=== PATIENT | male | born 1970 | race Caucasian/White ===

== ENCOUNTER 2024-05-02 10:21 | Outpatient (CLI) | payer OTHER, SELFPAY ==
[2024-05-02 11:25] LABS: Alanine Aminotransferase 56 U/L (6-50); Albumin Level 4.6 g/dL (3.5-5.1); Alkaline Phosphatase 93 U/L (38-126); Anion Gap 9 mmol/L (4-12); Aspartate Amino Transferase 40 U/L (17-59); Blood Urea Nitrogen 14 mg/dL (9-20); Calcium 9.4 mg/dL (8.4-10.2); Carbon Dioxide 30 mmol/L (22-30); Chloride 99 mmol/L (98-107); Cholesterol 165 mg/dL (0-200); Estimated Glomerular Filt Rate > 60; Glucose 107 mg/dL (65-110); HDL Direct 38 mg/dL; Sodium 138 mmol/L (137-145); Triglycerides 245 mg/dL (<150)
[2024-05-02 11:35] LABS: LDL Cholesterol Direct 83 mg/dL
== END 2024-05-02 10:22 | disposition home or self-care (01) ==
PROVIDERS: PCP Family Medicine; Referring Provider Physician Assistant Medical; Visit Provider Internal Medicine Cardiovascular Disease
DX: E78.2 Mixed hyperlipidemia (principal); R03.0 Elevated blood-pressure reading, without diagnosis of hypertension; I47.10 Supraventricular tachycardia, unspecified; R55 Syncope and collapse
CPT/HCPCS: 36415; 80053; 80061; 84443

== ENCOUNTER 2024-05-08 05:31 | Emergency (ER) | payer OTHER, SELFPAY ==
--- NOTE | ~2024-05-08 | XR_ITS ---
Clinical Indication: Cough PA and lateral views of the chest: Comparison: None Findings: The lungs are clear, without evidence of focal consolidation or pleural effusion. Cardiome diastinal silhouette is within normal limits. Bones and soft tissues are unremarkable. Impression: Normal chest. Reviewed, dictated and finalized at location . Impression: Normal chest.
[2024-05-08 06:31] LABS: Influenza A QL RT-PCR Negative (Negative); Influenza B QL RT-PCR Negative (Negative); RSV RNA, RT-PCR Negative (Negative); SARS-CoV-2 RNA PCR Negative (Negative)
--- NOTE | 2024-05-08 06:34 | ED.URI ---
HPI - URI/Sore Throat General Chief Complaint: Upper Respiratory Infection Stated Complaint: congestion that comes and goes, pressure left ear Time Seen by Provider: 05/08/24 05:48 History of Present Illness HPI Narrative: 53-year-old otherwise healthy male presenting for 3 weeks of cough, congestion, head pressure. He thinks he has some kind of bronchitis. He was a previous smoker but quit 20 years ago. No recent sick contacts. No chest pain or difficulty breathing. No nauseousness, vomiting, abdominal pain, back pain, fever, chills. His main complaint is that he has been coughing nonstop. Has tried some qcet-hpg-hxvejji decongestant without any relief of his symptoms. No significant pertinent past medical history. Was otherwise in good health. Related Data Allergies Allergy/AdvReac Type Severity Reaction Status Date / Time penicillin V Allergy Unknown Rash Verified 04/22/24 15:12 Review of Systems Review of Systems: As reviewed above in HPI [facility] Past Medical History Medical History Hyperlipidemia Surgical History Surgical History History of kidney surgery Family History Family History Father Family history of heart disease in male family member before age 55 Grandparent Cancer Social History Social History Smoking status: Never smoker Second hand tobacco smoke exposure: No Smoking end date: 08/28/08 Alcohol intake: current Alcohol use details: 1-4/week Substance use: never Substance use type: does not use Do You Feel Safe in your Home?: Yes Lack of Transportation: No Lack of Food: Never True Current Housing: I Have Housing Concerned About Future Housing: No Difficulty Paying Gas/Electric Bills: No Difficulty Paying for Meds: No Currently Unemployed: No Living arrangements: with family Occupation/Education: occupation Gender identity (if verbalized by the patient): Male Sexual Orientation (if Verbalized by the Patient): Straight or Heterosexual Spiritual care concerns: No Agree to blood products: No Exam Narrative: GENERAL: Well appearing, not in any acute distress but frequently coughing throughout the examination. Nonproductive and cough. HEAD: [Normocephalic, atraumatic.] EYES: [PERRLA and EOMI.] ENT: Nares clear, no rhinorrhea or epistaxis. Mucous membranes moist. NECK: Supple. CHEST: Some coarse breath sounds centrally but no respiratory distress. Frequently coughing throughout the examination. Good air entry and bilateral movement of air. HEART: [Regular rate and rhythm]. No murmur heard. [Normal peripheral pulses.] ABDOMEN: [Soft, nondistended], [nontender], [No rigidity or guarding] EXTREMITIES: Normal range of motion. [No edema.] SKIN: Warm, dry, no rash. NEURO: [No focal deficits]. Alert and oriented [x3.] PSYCH: [Normal mood and affect.] Course Vital Signs Vital signs: Vital Signs Oxygen Delivery Room Air 05/08/24 05:55 Oxygen Delivery Room Air 05/08/24 05:55 MDM - URI/Sore Throat MDM Narrative Medical decision making narrative: This is a 53-year-old male presenting with 3 weeks of upper respiratory infection symptoms including a nonproductive cough, congestion, head pressure. Was previously his normal state of health. Has normal reassuring triage vital signs without any acute concerns. Not hypoxic on room air. Examination reveals some coarse breath sounds more centrally but no adventitious breath sounds in the bases. Differential includes upper respiratory infection, lower respiratory infection, pneumonia, bronchitis, COVID. He was given symptomatic treatment with Tylenol with codeine as well as pseudoephedrine 1st congestion. A chest x-ray and COVID swab w
[2024-05-08 06:47] VITALS: BP 143/102; PULSE 88; RESP 18; TEMP 36.4; O2SAT 99
[2024-05-08] MEDS: PSEUDOEPHEDRINE HCL 30 MG TABLET 60 MG PO (07:04)
[2024-05-08] MEDS: ACETAMINOPHEN/CODEINE ELIXIR (*CRX) 120-12 MG/5 ML UDC PO (07:04)
[2024-05-08] MEDS: AZITHROMYCIN 250 MG TABLET 500 MG PO (07:09)
[2024-05-08 07:13] VITALS: BP 143/102; PULSE 88; RESP 18; TEMP 36.4; O2SAT 99
== END 2024-05-08 07:17 | disposition home or self-care (01) ==
PROVIDERS: Emergency Provider Student in an Organized Health Care Education/Training Program; PCP Family Medicine
DX: J40 Bronchitis, not specified as acute or chronic (principal); J06.9 Acute upper respiratory infection, unspecified; Z87.891 Personal history of nicotine dependence; E78.5 Hyperlipidemia, unspecified; Z20.822 Contact with and (suspected) exposure to COVID-19
CPT/HCPCS: 71046; 87637; 99283; A9270

== ENCOUNTER 2024-07-07 18:22 | Emergency (ER) | payer OTHER, SELFPAY ==
--- NOTE | ~2024-07-07 | XR_ITS ---
EXAM: XR ankle RT min 3V, XR foot RT min 3V DATE: 07/07/2024 21:00 HISTORY: pain, swelling, injury . COMPARISON: None available. FINDINGS: Normal mineralization. Small ossific fragment between the lateral talar process and the ti p of lateral malleolus. Fractures of the necks of the second through fourth metatarsals with mild pos terolateral angulation. No lytic lesion. Mild degenerative change at the ankle joint and first MTP bert int. Mild Achilles and plantar enthesopathy. Mild hallux valgus. Large enostosis in the right first p roximal phalanx. No erosion or periosteal change. Forefoot soft tissue swelling. IMPRESSION: Fractures of the necks of the second through fourth metatarsals, with mild posterolateral angulation. Small lateral ossific fragment may represent a fragment from a small lateral malleolar avulsion or la teral talar process fracture. Reviewed, dictated and finalized at location K. PHONE STATION INSTALLER IMPRESSION: Fractures of the necks of the second through fourth metatarsals, with mild post erolateral angulation. Small lateral ossific fragment may represent a fragment from a small lateral ma lleolar avulsion or lateral talar process fracture.
--- NOTE | ~2024-07-07 | XR_ITS ---
EXAMINATION: XR chest 2V Exam Date/Time: 07/07/2024 21:25 WELDING PRODUCTION SUPERVISOR HISTORY: syncope Comparison: 05/08/2024. RESULT: Lines, tubes, and devices: None. Lungs and pleura: Clear. Cardiomediastinal silhouette: Stable. Other: No acute osseous or upper abdominal finding. IMPRESSION: No acute cardiopulmonary process. Reviewed, dictated and finalized at location K. ING PRODUCTION SUPERVISOR
--- NOTE | ~2024-07-07 | XR_ITS ---
EXAM: XR hip RT 2V w AP pelvis DATE: 07/07/2024 21:33 HISTORY: hip pain, injury . COMPARISON: None available. FINDINGS: Normal mineralization. No fracture or dislocation. No lytic or blastic lesion. Joint space s are maintained. No erosion or periosteal change. Soft tissues within normal limits. IMPRESSION: No acute osseous finding in the pelvis or right hip. Reviewed, dictated and finalized at location K. S CENTER MANAGER
[2024-07-07 18:52] VITALS: BP 152/101; PULSE 110; RESP 18; TEMP 36.9; O2SAT 97
--- NOTE | 2024-07-07 18:53 | ECG_ITS ---
Test Date: 2024-07-07 19:07:13 Measurements Intervals [place] Rate: 112 P: 75 OR: 147 QRS: -32 QRSD: 98 T: 16 QT: 332 QTc: 455 Interpretive Statements SINUS TACHYCARDIA LEFT AXIS DEVIATION CONSIDER ANTERIOR INFARCT, AGE INDETERMINATE BASELINE ARTIFACT- I, III, AVR, AVL, AVF, V1-V6 ABNORMAL ECG No previous ECG available for comparison Electronically Signed On 07-08-2024 07:03:01 SUPERVISOR ROUGH END by Flavio Younger D.O.
[2024-07-07 19:09] VITALS: PULSE 112
[2024-07-07 20:44] VITALS: BP 110/76; PULSE 86; RESP 18; TEMP 36.4; O2SAT 97
--- NOTE | 2024-07-07 20:49 | PC.NURSE ---
pt was brought back to the room and c/o feeling dizzy. got vitals and pt BP was 64/41 and pt was pale and passed out. pt was sternal rubbed and put into the bed. this RN put an IV in, brooks blood, got an ekg, pt placed in trendelenberg, and notified a MD that instructed to start pt on fluids. pt BP was 82/53 at 2033. at 2042 pt bp was 96/78 with 300 mL of NS infused. pt bp at 2044 was 110/76 with 450 mL of NS infused. pt says hes feeling back to his normal self at this time
[2024-07-07] MEDS: SODIUM CHLORIDE 0.9% IV 1,000 ML 999 ML IV CONT (20:53)
--- NOTE | 2024-07-07 20:53 | ECG_ITS ---
Test Date: 2024-07-07 20:37:44 Measurements Intervals [place] Rate: 90 P: 44 DC: 157 QRS: -17 QRSD: 97 T: 36 QT: 343 QTc: 420 Interpretive Statements SINUS RHYTHM MINIMAL Q WAVES- HIGH LATERAL LEADS BASELINE WANDER- V1 BORDERLINE ECG Compared to ECG 07/07/2024 19:07:13 HEART RATE HAS DECREASED Electronically Signed On 07-08-2024 06:58:02 RAILROAD HAND by Flavio Younger D.O.
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
[2024-07-07 21:13] LABS: Basophils Absolute Auto 0.1 K/mm3 (0.0-0.1); Basophils Percent Auto 0.4 % (0.2-1.2); Eosinophils Absolute Auto 0.5 K/mm3 (0-0.3); Hematocrit 41.3 % (42.0-52.0); Immature Granulocyte Absolute 0.05 K/mm3 (0.00-0.031); Immature Granulocyte Percent A 0.3 % (0-0.5); Lymphocytes Absolute Auto 3.42 K/mm3 (0.9-3.2); Lymphocytes Percent Auto 22.8 % (18.3-44.2); Mean Corpuscular HGB Conc 36.3 g/dl (32-36); Mean Corpuscular Hemoglobin 32.1 pg (26-34); Mean Corpuscular Volume 88.2 fl (80-100); Monocytes Percent Auto 6.9 % (2.6-8.5); Neutrophils Percent Auto 66.6 % (45.5-73.1); Platelet Count Result 321 k/mm3 (150-375); Red Blood Count 4.68 M/mm3 (4.6-6.20); Red Cell Distribution Width 12.9 % (11.5-14.5)
[2024-07-07 21:23] LABS: Anion Gap 8 mmol/L (4-12); Blood Urea Nitrogen 14 mg/dL (9-20); Calcium 9.4 mg/dL (8.4-10.2); Carbon Dioxide 27 mmol/L (22-30); Chloride 103 mmol/L (98-107); Estimated CRCL calculation 82 ml/min; Estimated Glomerular Filt Rate > 60; Glucose 104 mg/dL (65-110); Potassium 3.4 mmol/L (3.4-5.0); Sodium 138 mmol/L (137-145)
[2024-07-07 21:28] VITALS: BP 121/79; PULSE 84; RESP 16; O2SAT 99
[2024-07-07] MEDS: HYDROcodone/acetaminophen (*CRX) 5-325 MG TABLET 1 TAB PO (21:50)
[2024-07-07 21:59] VITALS: BP 133/86; PULSE 100; RESP 15; O2SAT 97
[2024-07-07 22:51] LABS: Troponin I < 0.012 ng/mL (0.000-0.034)
[2024-07-07 23:08] VITALS: BP 135/97; PULSE 98; RESP 16; TEMP 36.7; O2SAT 98
== END 2024-07-07 23:29 | disposition home or self-care (01) ==
PROVIDERS: Emergency Provider Physician Assistant; PCP Family Medicine
DX: S92.321A Displaced fracture of second metatarsal bone, right foot, initial encounter for closed fracture (principal); S92.331A Displaced fracture of third metatarsal bone, right foot, initial encounter for closed fracture; S92.341A Displaced fracture of fourth metatarsal bone, right foot, initial encounter for closed fracture; R55 Syncope and collapse; E78.5 Hyperlipidemia, unspecified; Z87.891 Personal history of nicotine dependence; R00.0 Tachycardia, unspecified; R94.31 Abnormal electrocardiogram [ECG] [EKG]; V86.56XA Driver of dirt bike or motor/cross bike injured in nontraffic accident, initial encounter
CPT/HCPCS: 29515; 36415; 71046; 73502; 73610; 73630; 80048; 84484; 85025; 93005; 96360; 99284; A9270; J7030

== ENCOUNTER 2024-10-25 15:37 | Outpatient (CLI) | payer OTHER, SELFPAY | END 2024-10-25 15:38 | disposition home or self-care (01) | PROVIDERS: PCP Family Medicine; Visit Provider Urology | DX: C64.9 Malignant neoplasm of unspecified kidney, except renal pelvis (principal); Z90.5 Acquired absence of kidney | CPT/HCPCS: 74183; A9577 ==

== ENCOUNTER 2025-01-10 00:09 | Day surgery (SDC) | payer OTHER, SELFPAY ==
[2025-01-01 11:40] VITALS: BMI 28.5
--- OUTSIDE RECORDS SUMMARY | 2025-01-10 00:12 | XMS_ITS | Clinical Summary ---
Author Organization [facility] Care Team Providers Care Logistics Supply Officer Name Role Phone Unavailable Primary Care Provider Unavailabl e Social History Tobacco Use Types Packs/Day Years Used Date Smoking Tobacco: Never Assessed Sex and Gender Information Value Date Recorded Sex Assigned at Not on file Legal Sex Male 11:12 AM CDT Gender Identity Not on file Sexual Orientation Not on file Plan of Treatment Health Maintenance Due Date Last Done Comments Hepatitis C Virus (HCV) Screening 1972 Hepatitis B Immunization (1 of 3 - 19+ 3-dose series) 11/19/1991 Colonoscopy 2017 Colorectal Cancer Screening 2017 Cologuard 2022 Immunochemical Fecal Occult Blood 2022 Pneumococcal Immunization (5 0+ years) (1 of 1 - PCV) 2022 Zoster Immunization (1 of 2) 2022 Influenza Immunization (#1) 2024 SARS-COV-2 Immunization ( season) 2024 07/16/2021, 11/13/2020, 10/23/2020 Respiratory Syncytial Virus (RSV) Immunization (Adult) (1 - 1-dose 75+ series) 11/19/2047 DTaP/Tdap/Td Immunization Discontinued 06/30/2017 TdaP Immunization Completed 06/30/2017 Meningococcal Immunization (ACWY) Aged Out No longer eligible based on patient's age to complete this topic Pneumococcal Immunization Combined Aged Out No longer eligible based on patient's age to complete this topic Rotavirus Immunization Aged Out No lo nger eligible based on patient's age to complete this topic
--- OUTSIDE RECORDS SUMMARY | 2025-01-10 00:12 | XMS_ITS | Encounter Summary ---
Author Organization [facility] Address [address] [place] [address] Phone Care Team Providers Care Ventilator Specialist Name Role Phone Porter Allen MD Unavailable [phone] Marla Funes MD Primary Care Provider [phone] Encounter Details Date Type Department Care Team (Late st Contact Info) Description 11/27/2024 Results Follow-Up [facility] Cardiology [address] [place] [address] [place] [address] Stephanie Snider, WILLIAMS [address] [place] [address] Social History Tobacco Use Types Packs/Day Years Used Date Smoking Tobacco: Former Cigarettes 1 16 09 989 - 2008 Smokeless Tobacco: Never Social Connection and Isolat ion Panel [NHANES] Answer Date Recorded In a typical week, how many times do you talk on the phone with family, friends, or neighbors? More than three times a week 06/21/2023 How often do you get togethe r with friends or relatives? More than three times a week 06/21/2023 How often do you attend chur ch or sabianist services? Never 06/21/2023 Do you belong to any clubs o r organizations such as sabianist groups, unions, fraternal or athletic groups, or school groups? No 06/21/2023 How often do you attend meet ings of the clubs or organizations you belong to? Never 06/21/2023 Are you , , di vorced, , never , or living with a partner? 06/21/2023 AUDIT-C Answer Date Recorded Q1: How often do you have a drink containing alc ohol? 2-4 times a month 11/01/2024 Q2: How many drinks containi ng alcohol do you have on a typical day when you are drinking? 3 or 4 11/01/2024 Q3: How often do you have si x or more drinks on one occasion? Never 11/01/2024 Overall Financial Resource Strain (CARDIA) Answe r Date Recorded How hard is it for you to pa y for the very basics like food, housing, medical care, and heating? Not hard at all 06/21/2023 Hunger Vital Sign Answer Date Recorded Within the past 12 months, y ou worried that your food would run out before you got the money to buy more. Never true 06/21/20 23 Within the past 12 months, t he food you bought just didn't last and you didn't have money to get more. Never true 06/21/2023 PRAPARE - Transportation Answer Date Re corded In the past 12 months, has l ack of transportation kept you from medical appointments or from getting medications? No 05/29 In the past 12 months, has l ack of transportation kept you from meetings, work, or from getting things needed for daily living? No 06/21/2023 Housing Stability Vital Sign Answer Thomas e Recorded In the last 12 months, was t here a time when you were not able to pay the mortgage or rent on time? No 06/21/2023 In the last 12 months, how many places have you lived? 1 06/21/2023 In the last 12 months, was t here a time when you did not have a steady place to sleep or slept in a nursing home (including now)? No 06/21/2023 Personal Safety Answer Date Recorded Have you ever been in or are you currently in a harmful physical or emotional relationship or is someone making you feel afraid or unsafe? 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
--- OUTSIDE RECORDS SUMMARY | 2025-01-10 00:12 | XMS_ITS | Clinical Summary ---
Author Organization [facility] Address [address] [place] [address] Care Team Providers Care Tool Analyst Name Role Phone Porter Allen MD Unavailable [phone] Marla Funes MD Primary Care Provider [phone] Allergies Active Allergy Reactions Criticality Noted Date Comments Penicillin Rash Medium 06/14/2023 As a child Medications amitriptyline (ELAVIL) 10 mg tabletIndicatio ns:Slow digestive system Take 1 tablet (10 mg total) by mouth nightly Active atorvastatin (LIPITOR) 40 mg tabletIndicatio ns:hyperlipidem ia Take 1 tablet (40 mg total) by mouth nightly Active Active Problems Problem Noted Date Diagnosed Date SVT (supraventricular tachycardia) 11/01/2024 Pre-syncope 04/25/2024 PSVT (paroxysmal supraventricular tachycardia) 0 04/25/2024 Assessment & Plan (11/27/2024 2:07 PM CDT): -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 -He is doing well post ablation - no recurrence of SVT -Stop aspirin Elevated BP without diagnosis of hypertension Left renal mass 05/23/2023 Obstructive sleep apnea syndrome 09/23/2019 Overview (06/14/2023): CPAP Hyperlipidemia 08/11/2019 Chronic back pain 08/11/2019 Resolved Problems Problem Noted Date Diagnosed Date Resolved Date Rheumatoid arthritis 08/11/2019 023 Encounters Date Type Department Care Team Description 11/27/2024 2:00 PM CDT Office Visit [facility] [address] 8th [place] [address] [place] [address] Stephaine Snider NP PSVT (paroxysmal supraventricular tachycardia) (Primary Dx) 11/27/2024 Results Follow-Up [facility] [address] 8th [place] [address] [place] [address] Stephanie Sniedr NP 11/15/2024 10:00 AM CDT Office Visit [facility] [address] [place] [address] Slade Montgomery MD Obstructive sleep apnea syndrome (Primary Dx); Hypersomnia with sleep apnea; Overweight (BMI 25.0-29.9) 11/01/2024 1:51 PM DRUG ENFORCEMENT AGENT Anesthesia Event [facility] Elect[facility]iology [facility] [address] [place] [address] Iglesia Kumar MD PhD Gopi Lino CRNA 11/01/2024 12:50 PM DRUG ENFORCEMENT AGENT - 11/01/2024 4:20 PM DRUG ENFORCEMENT AGENT Surgery [facility] [address] [place] [address] Dante Gray MD ABLATION SUPRAVENTRICULAR TACHYCARDIA (SVT) 68044 11/01/2024 10:54 AM DRUG ENFORCEMENT AGENT - 11/01/2024 6:58 PM DRUG ENFORCEMENT AGENT Hospital Encounter [facility] [address] [place] [address] Dante Gray MD PSVT (paroxysmal supraventricular tachycardia) Discharge Disposition: Discharge to home or self care 10/31/2024 9:00 AM DRUG ENFORCEMENT AGENT Pre-Admission Testing [facility] Center for Preoperative Assessment and Planning [facility] [address] [place] [address] PSVT (paroxysmal supraventricular tachycardia) from Last 3 Months Surgical History Surgery Date Site/Laterality Comments CARDIAC ELECTROPHYSIOLOGY PROCEDURE 11/01/2024 Bilateral Procedure: ABLATION SUPRAVENTRICULAR TACHYCARDIA (SVT) 70267; Surgeon: Dante Gray MD; Location: [facility] EP [facility]; Service: Cardiovascular; Laterality: Bilateral; SVT RFA ENSITE GA NPO after 2400 on October 31, 2024. No medications morning of procedure and pt to be called with arrival time on November 01, 2024, plan on overnight stay following procedure. Medical devices from this surgery are in the Medical Devices section. CARDIAC ELECTROPHYSIOLOGY PROCEDURE 11/01/2024 N/A Procedure: POST DRUG PROGRAM STIM AND PACING (+) [id number]; Surgeon: Dante Gray MD; Location: [facility] EP [facility]; Service: Cardiovascular; Laterality: N/A; Medical devices from this surgery are in the Medical Devices section. Medical History Medical History Date Comments Heart murmur Hx of inguinal hernia surgery le ft Sleep apnea Family History Medical History Relation Name Comments Heart failure Father Heart attack Paternal Grandfather Anesthesia problems Neg Hx Malig Hypertension Neg Hx Malig Hyperthermia Neg Hx Pseudochol deficiency Neg Hx Relation Name Status Comments Father Paternal Grandfather Social History Tobacco Use Types Packs/Day Years Used Date Smoking Tobacco: Former Cigarettes 1 20 1 9 - 2008 Smokeless Tobacco: Never Tobacco Cessation:Counseling Given: Not Answered Social Connection and Isolat ion Panel [NHANES] Answer Date Recorded In a typical week, how many times do you talk on the phone with family, friends, or neighbors? More than three times a week 06/21/2023 How often do you get togethe r with friends or relatives? More than three times a week 06/21/2023 How often do you attend chur or shinto services? Never 06/21/2023 Do you belong to any clubs o r organizations such as baptist groups, unions, fraternal or athletic groups, or [...] place to sleep or slept in a chcf (including now)? No 06/21/2023 Personal Safety Answer Date Recorded Have you ever been in or are you currently in a harmful physical or emotional relationship or is someone making you feel afraid or unsafe? Denies 11/01/2024 Sex and Gender Information Value Date Recorded Sex Assigned at Not on file Legal Sex Male 7:36 PM DRUG ENFORCEMENT AGENT Gender Identity Not on file Sexual Orientation Not on file Obstetrics History Last Filed Vital Signs Vital Sign Reading Time Taken Comments Blood Pressure 132/90 11/27/2024 1:46 PM CDT Pulse 75 11/27/2024 1:46 PM CDT Temperature 36.8 C (98.2 F) 11/01/2024 11:25 AM DRUG ENFORCEMENT AGENT Respiratory Rate 22 11/01/2024 6:45 PM DRUG ENFORCEMENT AGENT Oxygen Saturation 95% 11/27/2024 1:46 PM CDT Inhaled Oxygen Concentration - - Weight 95.4 kg (210 lb 6.4 oz) 11/27/2024 1:46 P M CDT Height 180.3 cm (5' 11 ) 11/27/2024 1:46 PM CDT Body Mass Index 29.34 11/27/2024 1:46 PM CDT Plan of Treatment Health Maintenance Due Date Last Done Comments Colon Cancer Screening-Colonoscopy 1970 Depression Screening 1972 Hepatitis C Screening 1972 Prostate Cancer Screening-PSA 1972 Hepatitis B Screening 1990 Regular Well Visit/Exam 18-64 1990 Covid-19 Vaccine (4 - 2023-2 5 season) 2024 07/16/2021, 11/13/2020, 10/23/2020 Zoster Vaccine (2 of 2) 11/14/2024 09/19/2024 Influenza Vaccine (Season Ended) 2025 DTaP/Tdap/Td Vaccine (3 - Td or Tdap) 06/30/2027 06/30/2017, 08/28/2009 Pneumococcal vaccine <65 Aged Out 09/19/2024 No longer eligible based on patient's age to complete this topic Medical Devices Implanted Type Area Enterprise Data Architect Device Identifier Shelf Expiration Date Model / Serial / Lot [employer] Vascade Mvp 6-12fr Venous Closure [id number] - [id number] - [id number] Implanted:Qty : 1 on 11/01/2024 by Dante Gray MD at [facility] Collagen Left: Femoral Vein [employer] 06/07/2026 [id number] [id number] / [id number] / [id number] [employer] Device Closure Vascade Od5 Fr Femoral Artery [id number] - [id number] - [id number] Implanted:Qty : 1 on 11/01/2024 by Dante Gray MD at [facility] Collagen Left: Femoral Vein [employer] 06/19/2026 [id number] -05U / [id number] / [id number] [employer] Device Vascular Closure Vascade Mvp Xl 10-12fr Venous Strl [id number] - [id number] - [id number] Implanted:Qty : 1 on 11/01/2024 by Dante Gray MD at [facility] Collagen Right: Femoral Vein [employer] 05/20/2026 [id number] L / [id number] / [id number] [employer] Device Closure Vascade Od5 Fr Femoral Artery [id number] - [id number] - [id number] Implanted:Qty : 1 on 11/01/2024 by Dante Gray MD at [facility] Collagen Right: Femoral Vein [employer] 06/19/2026 [id number] -05U / [id number] / [id number] Procedures Procedure Name Priority Date/Time Associated Diagnosis Comments ECG 12-LEAD Routine 11/27/2024 1:49 PM CDT PSVT (paroxysmal supraventricular tachycardia) POST DRUG PROGRAM STIM AND PACING Routine 11/01/2024 4:41 PM DRUG ENFORCEMENT AGENT PSVT (paroxysmal supraventricular tachycardia) ABLATION SUPRAVENTRICULAR TACHYCARDIA TREATMENT (SVT) Routine 11/01/2024 4:41 PM DRUG ENFORCEMENT AGENT PSVT (paroxysmal supraventricular tachycardia) POC BLOOD GAS AND CHEMISTRIES, ARTERIAL Routine 11/01/2024 12:37 PM DRUG ENFORCEMENT AGENT EGFR Routine 10/31/2024 10:04 AM DRUG ENFORCEMENT AGENT PSVT (paroxysmal supraventricular tachycardia) URINALYSIS AND REFLEX TO MICROSCOPIC Routine 10/31/2024 10:04 AM DRUG ENFORCEMENT AGENT PSVT (paroxysmal supraventricular tachycardia) CBC WITHOUT DIFFERENTIAL Routine 10/31/2024 10:04 AM DRUG ENFORCEMENT AGENT PSVT (paroxysmal supraventricular tachycardia) BASIC METABOLIC PANEL Routine 10/31/2024 10:04 AM DRUG ENFORCEMENT AGENT PSVT (paroxysmal supraventricular tachycardia) from Last 3 Months Results * ECG 12 lead (11/27/2024 1:49 PM CDT) us Stephanie Snider MUSSEL OPENER ECG ORDERABLES Edited Re sult - Final * ABLATION SUPRAVENTRICULAR TACHYCARDIA TREATMENT (SVT), POST DRUG PROGRAM STIM AND PACING (11/01/2024 4:41 PM DRUG ENFORCEMENT AGENT) Anatomical Region Laterality Modality X-Ray Angiograph y Narrative 11/01/2024 5:29 PM DRUG ENFORCEMENT AGENT Table formatting from the original result was not included. Patient Name: Jaylon Atkinson Date of : 1970 Primary Physician: @PCP@ Procedure Date: @ADMITDT@ Procedure Electrophysiology Study with SVT ablation Left atrial recording / pacing IV drug for arrhythmia induction Patient History 53 y.o. year old White male with the following arrhythmia-specific problems: SVT Palpitations for 4-5 years, recently went to [facility] ED with documented SVT (220 bpm) 12/10 reportedly aborted with vagal maneuvers. Echo 03/2024 normal LVEF, mild ao root dilation Hx of L renal mass s/p partial nephrectomy HTN, HLD, RIZWAN Was at work, talking to friends, when palpitations started with associated presyncope Symptoms did not valentino so went to the ED. They had them blow hard on a syringe and lifted up his feet. His arrhythmia stopped for a couple of seconds and restarted and so repeated the maneuver and this time he went back into rhythm. Has had other episodes, including ones that lasted for hours, often associated with presyncope. Has not had syncope. Since ED visit has had small episodes here or there that he can abort by raising his hands and leaning against a wall. Has been having the symptoms for years (since [id number]) but was never bad enough to seek medical attention for it. Normal LVEF on echo . Here for SVT RFA. Method After informed consent was obtained, the patient was brought to the EP lab in a post-absorptive, non-sedated state. A peripheral IV was in place. Continuous electrocardiography, blood pressure and pulse oximetry monitoring was initiated and cardioversion / defibrillator electrodes were positioned on the chest in an AP orientation. Conscious sedation was administered with the assistance of the anesthesia services, and local anesthesia was given at the femoral vein access sites. Using modified Seldinger technique, vascular access was achieved and sheaths were placed. Multipolar catheters were advanced to the coronary sinus, His bundle recording position, and right ventricle. Following the determination of baseline conduction intervals, comprehensive EP study was performed. Pacing and recording from the RA, RV, HBE, and CS / LA was performed. For arrhythmia details, see below. At the end of the procedure, all catheters and sheaths were removed and hemostasis was assured with Vascade. The patient was returned to the recovery area in stable condition. Access Sites: Left femoral vein: 2 sheaths (7 Fr, 5 Fr) Right Femoral Vein: 2 sheaths (8 Fr--> 11.5 Agilis, 5 Fr) Conduction Intervals (Pre Ablation) V-V P-R QRS Q-T A-H H-V 1044 166 93 395 104 40 Conduction Intervals (Post Ablation) V-V P-R QRS Q-T A-H H-V 640 165 90 350 39 AV Conduction AVWB at 340msec VAWB at 330 msec Procedure Synopsis: The patient entered the room in SR. Catheters were placed and basleine intervals were measured. HV was normal. There was no evidence of accessory pathway. There WAS clear evidence of dual AV maura physiology. SVT was easily induced with burst atrial pacing. It degenerated into AF a couple times requiring DCCV. SVT sustained on isuprel to allow for mapping/maneuvers/ Characteristics and maneuvers were consistent with typical AVNRT(TCL 360ms, VAV, Late Maria Teresa, PPI-TCL > 115ms, dual AVN, VT > RR). Ablation at the base of the TOK resulted in slow junctionals. Several applications required to render SVT non-inducible. Following ablation, despite waiting period and repeat testing on and off isuprel SVT/AVNRT could no longer be induced. ASA x 1 month. Follow up Isaac MUSSEL OPENER in 4-6 weeks Recommendations Bedrest with straight-leg precautions 2-3 hours Anticipate discharge home after bedrest F/U with Isaac KRAMER in 4-6 weeks Dante Gray MD us Dante Gray MD CV ELECTROPHYSIOLOGY VT OCS Final Result * POC Blood Gas and Chemistries, Arterial - (11/01/2024 12:37 PM DRUG ENFORCEMENT AGENT) [facility] K POC 3.9 3.3 - 4.9 mmol/L Comment: Interpretive Data Not all point of care methods assess for hemolysis. Confirm with instrument and retest K+ if not consistent with clinical signs and symptoms. Current Interpretive Data was last revised on 2023. Blood 11/01/2024 12:3 7 PM DRUG ENFORCEMENT AGENT 11/01/2024 12:37 PM DRUG ENFORCEMENT AGENT Dante Gray MD LAB POCT ORDERABLES - D EVICE Final Result [facility] Department [place] [address] * eGFR (10/31/2024 10:04 AM DRUG ENFORCEMENT AGENT) Pathologist [facility] eGFR >90 >=60 mL/min/1. 73 m2 Comment: Interpretive Data Reference Interval Normal >/= 90 mL/min/1.73m2 Mildly decreased* 60 - 89 mL/min/1.73m2 Mildly to moderately decreased 45 - 59 mL/min/1.73m2 Moderately to severely decreased 30 - 44 mL/min/1.73m2 Severely decreased 15 - 29 mL/min/1.73m2 Kidney Failure < 15 mL/min/1.73m2 *Relative to young adult level Estimated glomerular filtration rate is determined by the 2020 CKD-EPI equation recommended by the National Kidney Foundation (A Unifying Approach to GFR Estimation: Recommendations of the NKF-ASK Task Force on Reassessing the Inclusion of Race in Diagnosing Kidney Disease, JASN 2020). The CKD-EPI equation should not be used for patients with unstable renal function and has not been validated in children and those over 70. Current interpretive data was last reviewed 2021. Blood 10/31/2024 10:0 4 AM DRUG ENFORCEMENT AGENT 10/31/2024 10:49 AM DRUG ENFORCEMENT AGENT Dante Gray MD LAB BLOOD ORDERABLES Fi nal Result Performing Organization Address [facility] Co de Phone Number [facility] [place] [address] * Urinalysis reflex to microscopic (10/31/2024 10:04 AM DRUG ENFORCEMENT AGENT) Color, ur Straw Yellow Clarity, ur Clear Clear [facility] Specific gravity, ur 1.012 1.003 - 1.030 [facility] pH, urine 6.0 [facility] Comment: Interpretive Data U rine pH is affected by diet, medications, systemic acid-base disturbances, and renal tubular function. pH may affect urinary stone formation. For example, urine pH below 6.0 may help reduce the tendency for calcium phosphate stones and pH greater than 6.0 may reduce the tendency for uric acid stone formation. Source: [facility] Current Interpretive Data was last revised on 2017 Protein, ur ql Negative Negative [facility] Glucose, ur ql Negative Negative [facility] Ketones, ur Negative Negative [facility] Bilirubin, ur Negative Negative [facility] Blood, ur Negative Negative [facility] Urobilinogen, ur <2.0 <2.0 mg/dL [facility] Nitrite, ur Negative Negative [facility] Leukocyte esterase, ur Negative Negative [facility] UA reflex comment Reflex conditions for microscopic UA not met. [facility] Urine 10/31/2024 10:0 4 AM DRUG ENFORCEMENT AGENT 10/31/2024 10:45 AM DRUG ENFORCEMENT AGENT Dante Gray MD LAB URINE ORDERABLES Fi nal Result Performing Organization Address [facility]/ZIP Co de Phone Number [facility] [place] [address] * CBC without differential (10/31/2024 10:04 AM DRUG ENFORCEMENT AGENT) WBC 7.6 3.8 - 9.9 K/cumm Hgb 14.8 13.0 - 17.5 g/dL [facility] Hct 43.3 38.9 - 50.3 % [facility] Plt 262 150 - 400 K/cumm [facility] MPV 9.4 9.1 - 12.3 fL [facility] RBC 4.85 4.30 - 5.80 M/cumm [facility] MCV 89.3 81.3 - 96.4 fL [facility] MCH 30.5 27.1 - 33.3 pg [facility] MCHC 34.2 32.3 - 35.7 g/dL [facility] RDW CV 13.2 11.1 - 14.9 % [facility] RDW SD 43.3 35.7 - 48.1 fL [facility] NRBC abs 0.00 0.00 - 0.01 K/cumm [facility] Blood 10/31/2024 10:0 4 AM DRUG ENFORCEMENT AGENT 10/31/2024 10:49 AM DRUG ENFORCEMENT AGENT us Dante Gray MD LAB BLOOD ORDERABLES Fi nal Result [facility] Department [place] [address] * Basic metabolic panel (10/31/2024 10:04 AM DRUG ENFORCEMENT AGENT) Sodium 143 135 - 145 mmol/L Potassium, pl 4.2 3.3 - 4.9 mmol/L [facility] Comment:Hemolyzed; Potassium value may be falsely elevated by as much as 0.6-1.0 mmol/L. Suggest redraw and reanalysis. Chloride 106 97 - 110 mmol/L [facility] CO2 28 22 - 32 mmol/L [facility] Anion gap 9 2 - 15 mmol/L [facility] BUN 9 6 - 25 mg/dL [facility] Creatinine 1.00 0.80 - 1.30 mg/dL [facility] Glucose 104 70 - 199 mg/dL [facility] Comment: Interpretive Data Fasting glucose >/= 126 mg/dl is diagnostic for diabetes. Fasting is defined as no caloric intake for at least 8 hours. Fasting glucose between 100 mg/dl to 125 mg/dl is diagnostic of prediabetes. In a patient with classic symptoms of hyperglycemia or hyperglycemic crisis, a random glucose >/= 200 mg/dl is diagnostic for diabetes. In the absence of unequivocal hyperglycemia, results should be confirmed by repeat testing. The classification and Diagnosis of Diabetes Diabetes Care 2021; 46: S19-S40. Current interpretive data was last revised 2022. Calcium 9.4 8.5 - 10.3 mg/dL [facility] Blood 10/31/2024 10:0 4 AM DRUG ENFORCEMENT AGENT 10/31/2024 10:49 AM DRUG ENFORCEMENT AGENT us Dante Gray MD LAB BLOOD ORDERABLES Fi nal Result [facility] Department [place] [address] from Last 3 [place] [address] [employer] [address] [employer] [facility] Advance Directives For more information, please contact: [phone] * Full Code (Latest Code Status on File) Date Activated Date Inactivated Comments 06/20/2023 9:18 PM 06/23/2023 10:02 PM Care Teams Tool Analyst Relationship Specialty Start Date End Date Marla Funes MD [address] [place] [address] PCP - General Family Medicine 04/25/24 [place] [address] [place] [address] Consulting Physician Urology 06/23/23
--- OUTSIDE RECORDS SUMMARY | 2025-01-10 00:12 | XMS_ITS | Referral Summary ---
Author Organization [facility] Address [address] [place] [address] Care Team Providers Care Social Insurance Adviser Name Role Phone Porter Allen MD Unavailable [phone] Marla Funes MD Primary Care Provider Encounters Date Type Department Care Team Description 11/27/2024 Results Follow-Up [facility] Cardiology [address] [place] [address] 8th [place] [address] [place] [address] Stephanie Snider NP 11/27/2024 2:00 PM CDT Office Visit [facility] Cardiology [address] [place] [address] 8th [place] [address] [place] [address] Stephanie Snider, WILLIAMS PSVT (paroxysmal supraventricular tachycardia) (Primary Dx) 11/15/2024 10:00 AM CDT Office Visit [facility] [address] [place] [address] [address] [id number] Slade Montgomery MD Obstructive sleep apnea syndrome (Primary Dx); Hypersomnia with sleep apnea; Overweight (BMI 25.0-29.9) 11/01/2024 12:50 PM AIR INTERCEPT CONTROLLER - 11/01/2024 4:20 PM AIR INTERCEPT CONTROLLER Surgery [facility] [address] [place] [address] Dante Gray MD ABLATION SUPRAVENTRICULAR TACHYCARDIA (SVT) 36557 11/01/2024 1:51 PM AIR INTERCEPT CONTROLLER Anesthesia Event [facility] [address] [place] [address] Iglesia Kumar MD PhD Gielow, Mathew Gregory, CRNA 11/01/2024 10:54 AM AIR INTERCEPT CONTROLLER - 11/01/2024 6:58 PM AIR INTERCEPT CONTROLLER Hospital Encounter [facility] [address] [place] [address] Dante Gray MD PSVT (paroxysmal supraventricular tachycardia) Discharge Disposition: Discharge to home or self care 10/31/2024 9:00 AM AIR INTERCEPT CONTROLLER Pre-Admission Testing [facility] ([facility]) [address] [place] [address] PSVT (paroxysmal supraventricular tachycardia) from Last 3 Months Allergies Active Allergy Reactions Criticality Noted Date [...] Date Resolved Date Rheumatoid arthritis 08/11/2019 023 Social History Tobacco Use Types Packs/Day Years Used Date Smoking Tobacco: Former Cigarettes 09 16 1 989 - 2009 Smokeless Tobacco: Never Tobacco Cessation:Counseling Given: Not [...] often do you attend chur ch or yazdanism services? Never 06/21/2023 Do you belong to any clubs o r organizations such as zoroastrian groups, unions, fraternal or athletic groups, or [...] place to sleep or slept in a retirement (including now)? No 06/21/2023 Personal Safety Answer Date Recorded Have you ever been in or are you currently in a harmful physical or emotional relationship or is someone making you feel afraid or unsafe? Denies 11/01/2024 Sex and Gender Information Value Date Recorded Sex Assigned at Not on file Legal Sex Male 7:36 PM AIR INTERCEPT CONTROLLER Gender Identity Not on file Sexual Orientation Not on file Last Filed Vital Signs Vital Sign Reading Time Taken Comments Blood Pressure 132/90 11/27/2024 1:46 PM CDT Pulse 75 11/27/2024 1:46 PM CDT Temperature 36.8 C (98.2 F) 11/01/2024 11:25 AM AIR INTERCEPT CONTROLLER Respiratory Rate 22 11/01/2024 6:45 PM AIR INTERCEPT CONTROLLER Oxygen Saturation 95% 11/27/2024 1:46 PM CDT Inhaled Oxygen Concentration - - Weight 95.4 kg (210 lb 6.4 oz) 11/27/2024 1:46 P M CDT Height 180.3 cm (5' 11 ) 11/27/2024 1:46 PM CDT Body Mass Index 29.34 11/27/2024 1:46 PM CDT Plan of Treatment Not on file Medical Devices Implanted Type Area Step Down Nurse Device Identifier Shelf Expiration Date Model / Serial / Lot [employer] Vascade Mvp 6-12fr Venous Closure [id number] - [id number] - [id number] Implanted:Qty : 1 on 11/01/2024 by Dante Gray MD at [facility] Left: Femoral Vein [employer] 06/07/2026 [id number] [id number] / [id number] [id number] / [id number] [employer] Device Closure Vascade Od5 Fr Femoral Artery [id number] - [id number] - [id number] Implanted:Qty : 1 on 11/01/2024 by Dante Gray MD at [facility] Left: Femoral Vein [employer] 06/19/2026 [id number] -[id number] / [id number] / [id number] [employer] Device Vascular Closure Vascade Mvp Xl 10-12fr Venous Strl [id number] - [id number] - [id number] Implanted:Qty : 1 on 11/01/2024 by Dante Gray MD at [facility] Right: Femoral Vein [employer] 05/20/2026 [id number] L / [id number] / [id number] [employer] Device Closure Vascade Od5 Fr Femoral Artery [id number] - [id number] - [id number] Implanted:Qty : 1 on 11/01/2024 by Dante Gray MD at [facility] Right: Femoral Vein [employer] 06/19/2026 700-500DX -05U / [id number] / [id number] Procedures Procedure Name Priority Date/Time Associated Diagnosis Comments ECG 12-LEAD Routine 11/27/2024 1:49 PM CDT PSVT (paroxysmal supraventricular tachycardia) POST DRUG PROGRAM STIM AND PACING Routine 11/01/2024 4:41 PM AIR INTERCEPT CONTROLLER PSVT (paroxysmal supraventricular tachycardia) ABLATION SUPRAVENTRICULAR TACHYCARDIA TREATMENT (SVT) Routine 11/01/2024 4:41 PM AIR INTERCEPT CONTROLLER PSVT (paroxysmal supraventricular tachycardia) POC BLOOD GAS AND CHEMISTRIES, ARTERIAL Routine 11/01/2024 12:37 PM AIR INTERCEPT CONTROLLER EGFR Routine 10/31/2024 10:04 AM AIR INTERCEPT CONTROLLER PSVT (paroxysmal supraventricular tachycardia) URINALYSIS AND REFLEX TO MICROSCOPIC Routine 10/31/2024 10:04 AM AIR INTERCEPT CONTROLLER PSVT (paroxysmal supraventricular tachycardia) CBC WITHOUT DIFFERENTIAL Routine 10/31/2024 10:04 AM AIR INTERCEPT CONTROLLER PSVT (paroxysmal supraventricular tachycardia) BASIC METABOLIC PANEL Routine 10/31/2024 10:04 AM AIR INTERCEPT CONTROLLER PSVT (paroxysmal supraventricular tachycardia) from Last 3 Months Results * ECG 12 lead (11/27/2024 1:49 PM CDT) us Stephanie Snider LEAD CARPENTER ECG ORDERABLES Edited Re sult - Final * ABLATION SUPRAVENTRICULAR TACHYCARDIA TREATMENT (SVT), POST DRUG PROGRAM STIM AND PACING (11/01/2024 4:41 PM AIR INTERCEPT CONTROLLER) Anatomical Region Laterality Modality X-Ray Angiograph y Narrative 11/01/2024 5:29 PM AIR INTERCEPT CONTROLLER Table formatting from the original result was not included. Patient Name: Jaylon Atkinson Date of : 1970 Primary Physician: @PCP@ Procedure Date: @ADMITDT@ Procedure Electrophysiology Study with SVT ablation Left atrial recording / pacing IV drug for arrhythmia induction Patient History 53 y.o. year old White male with the following arrhythmia-specific problems: SVT Palpitations for 4-5 years, recently went to [facility] ED with documented SVT (220 bpm) 12/10 [...] been having the symptoms for years (since 6201-4212) but was never bad enough to seek [...] Maria Teresa, PPI-TCL > 115ms, dual AVN, RI > RR). Ablation at the base of the TOK resulted in slow junctionals. Several applications required to render SVT non-inducible. Following ablation, despite waiting period and repeat testing on and off isuprel SVT/AVNRT could no longer be induced. ASA x 1 month. Follow up Isaac LEAD CARPENTER in 4-6 weeks Recommendations Bedrest with straight-leg precautions 2-3 hours Anticipate discharge home after bedrest F/U with Isaac LEAD CARPENTER in 4-6 weeks Dante Gray MD Dante Gray MD CV ELECTROPHYSIOLOGY RI OCS Final Result * POC Blood Gas and Chemistries, Arterial - (11/01/2024 12:37 PM AIR INTERCEPT CONTROLLER) [facility] K POC 3.9 3.3 - 4.9 mmol/L Comment: Interpretive Data Not all point of care methods assess for hemolysis. Confirm with instrument and retest K+ if not consistent with clinical signs and symptoms. Current Interpretive Data was last revised on 2023. Blood 11/01/2024 12:3 7 PM AIR INTERCEPT CONTROLLER 11/01/2024 12:37 PM AIR INTERCEPT CONTROLLER Dante Gray MD LAB POCT ORDERABLES - D EVICE Final Result [facility] Department [place] [address] * eGFR (10/31/2024 10:04 AM AIR INTERCEPT CONTROLLER) [facility] eGFR >90 >=60 mL/min/1. 73 m2 Comment: [...] reviewed 2021. Blood 10/31/2024 10:0 4 AM AIR INTERCEPT CONTROLLER 10/31/2024 10:49 AM AIR INTERCEPT CONTROLLER Dante Gray MD LAB BLOOD ORDERABLES Fi nal Result Performing Organization Address [facility] Co de Phone Number [facility] [place] [address] * Urinalysis reflex to microscopic (10/31/2024 10:04 AM AIR INTERCEPT CONTROLLER) Color, ur Straw Yellow Clarity, ur Clear Clear [facility] Specific gravity, ur 1.012 1.003 - 1.030 [facility] pH, urine 6.0 [facility] Comment: Interpretive Data U rine pH is affected by diet, medications, systemic acid-base disturbances, and renal tubular function. pH may affect urinary stone formation. For example, urine pH below 6.0 may help reduce the tendency for calcium phosphate stones and pH greater than 6.0 may reduce the tendency for uric acid stone formation. Source: [facility] Current Interpretive Data was last revised on 2017 Protein, ur ql Negative Negative [facility] Glucose, ur ql Negative Negative [facility] Ketones, ur Negative Negative [facility] Bilirubin, ur Negative Negative [facility] Blood, ur Negative Negative [facility] Urobilinogen, ur <2.0 <2.0 mg/dL [facility] Nitrite, ur Negative Negative [facility] Leukocyte esterase, ur Negative Negative [facility] UA reflex comment Reflex conditions for microscopic UA not met. [facility] Urine 10/31/2024 10:0 4 AM AIR INTERCEPT CONTROLLER 10/31/2024 10:45 AM AIR INTERCEPT CONTROLLER Dante Gray MD LAB URINE ORDERABLES Fi nal Result Performing Organization Address City/[facility]/ZIP Co de Phone Number [facility] [place] [address] * CBC without differential (10/31/2024 10:04 AM AIR INTERCEPT CONTROLLER) [facility] WBC 7.6 3.8 - 9.9 K/cumm Hgb 14.8 13.0 - 17.5 g/dL [facility] Hct 43.3 38.9 - 50.3 % [facility] Plt 262 150 - 400 K/cumm [facility] MPV 9.4 9.1 - 12.3 fL [facility] RBC 4.85 4.30 - 5.80 M/cumm [facility] MCV 89.3 81.3 - 96.4 fL [facility] MCH 30.5 27.1 - 33.3 pg [facility] MCHC 34.2 32.3 - 35.7 g/dL [facility] RDW CV 13.2 11.1 - 14.9 % [facility] RDW SD 43.3 35.7 - 48.1 fL [facility] NRBC abs 0.00 0.00 - 0.01 K/cumm [facility] Blood 10/31/2024 10:0 4 AM AIR INTERCEPT CONTROLLER 10/31/2024 10:49 AM AIR INTERCEPT CONTROLLER us Dante Gray MD LAB BLOOD ORDERABLES Fi nal Result [facility] Department [place] [address] * Basic metabolic panel (10/31/2024 10:04 AM AIR INTERCEPT CONTROLLER) [facility] Sodium 143 135 - 145 mmol/L Potassium, pl 4.2 3.3 - 4.9 mmol/L [facility] Comment:Hemolyzed; Potassium value may be falsely elevated by as much as 0.6-1.0 mmol/L. Suggest redraw and reanalysis. Chloride 106 97 - 110 mmol/L [facility] CO2 28 22 - 32 mmol/L [facility] Anion gap 9 2 - 15 mmol/L [facility] BUN 9 6 - 25 mg/dL [facility] Creatinine 1.00 0.80 - 1.30 mg/dL [facility] Glucose 104 70 - 199 mg/dL [facility] Comment: Interpretive Data Fasting glucose [...] classification and Diagnosis of Diabetes Diabetes Care 202; 46: S19-S40. Current interpretive data was last revised 2022. Calcium 9.4 8.5 - 10.3 mg/dL [facility] Blood 10/31/2024 10:0 4 AM AIR INTERCEPT CONTROLLER 10/31/2024 10:49 AM AIR INTERCEPT CONTROLLER us Dante Gray MD LAB BLOOD ORDERABLES Fi nal Result [facility] [place] [address] from Last [address] [place] [address] [employer] [facility] Advance Directives For more information, please contact: [phone] * Full Code (Latest Code Status on File) Date Activated Date Inactivated Comments 06/20/2023 9:18 PM 06/23/2023 10:02 PM Care Teams Social Insurance Adviser Relationship Specialty Start Date End Date Marla Funes MD [address] [place] [address] PCP - General Family Medicine 04/25/24 [place] [id number] [place] [address] Consulting Physician Urology 06/23/23
--- OUTSIDE RECORDS SUMMARY | 2025-01-10 00:12 | XMS_ITS ---
[facility] record ed. [id number] Not Available 10/26/2022 10:48:24 Result Notes None recorded. Problems Name Problem SNOMED Code Status Onset Date Resolution Date Notes Provider Name and Address Organization Details Recorded Time Chronic back pain 393200655 Active 2018 Not Available [facility] 3 10:44:41 Arthritis 3281588 Active 2018 Not Available [facility] 3 10:44:41 Pablo de la Tourette's syndrome 4244838 Active 2018 Not Available [facility] 3 10:44:41 Hyperlipidemi a 51032125 Active 2018 Not Available [facility] 3 10:44:41 Obstructive sleep apnea syndrome 43096584 Active 2019 CPAP Not Available [facility] 3 10:44:41 Heart murmur 30100746 Active 2018 Not Available [facility] 3 10:44:41 Renal mass 691133998 Active 2022 ANEL Celeste [address], [place], [address] , [employer] 3 12:48:18 Injury of spleen 74363762 Active 2022 ANEL Celeste [address], [address] [place] [address], [address] , [employer] 3 12:48:47 Low back pain 377235471 Active 2022 ANEL Celeste [address], [address], [place], [address] , [employer] 3 12:54:28 Onychomycosis of toenails 729652589 Active 2022 ANEL Celeste [address], [place], [address] , [employer] 3 13:00:47 Renal cell carcinoma 171916265 Active 2023 Olga Lyle MD [address], [address], [place], [address] , [place] [facility] [employer] [facility] 4 11:16:11 Problem Notes None recorded. Procedures Surgical History Date Name Laterality Status Provider Name and Address Organization Details Recorded Time Hernia Repair completed MAGDALENA Bhardwaj A [facility] [employer] 12/15/2022 10:18:52 Imaging Results Imaging Date Name Status LastModified by Organiz ation Details LastModified Time 09/15/2014 sleep study, diagnostic (PROC) completed [id number] Information not available 10/26/2022 10:48:24 Procedure Notes None recorded. Medical Equipment None Reported. Allergies Allergen ID Allergen Name Allergen Category Reaction Reaction Severity Criticality Documentation Date Start Date Code Code System Note Provider Name and Address Organization Details Recorded Time 02312 Product containin g penicilli n (product) medicatio n Not available Not available Not available 10/26/2022 56953 8001 SNOMED rash Not Available [facility] 3 10:48:00 Medications Name Sig Start Date Stop Date Status Note LastModified by Organization Details LastModified Time ibuprofen 800 mg tablet 12/15 completed Not Available Not Available Not Available meloxicam 15 mg tablet 1 po qday prn 12/06 completed Not Available Not Available Not Available ondansetron HCl 4 mg tablet 02/12 completed Not Available Not Available Not Available oxycodone-a cetaminophe n 5 mg-325 mg tablet active Not Available Not Available No t Available methocarbam ol 750 mg tablet 12/06 completed Not Available Not Available Not Available tamsulosin 0.4 mg capsule 02/12 completed Not Available Not Available Not Available amitriptyli ne 10 mg tablet TAKE 1 TABLET BY MOUTH EVERY NIGHT AT BEDTIME 2023 active Not Available Not Available Not Avai lable cephalexin 500 mg capsule active Not Available Not Available Not Available oxycodone 5 mg capsule active Not Available Not Available N ot Available ketoconazol e 2 % topical cream 08/12 completed Not Available Not Available Not Available fluticasone propionate 50 mcg/actuati on nasal spray,suspe nsion 2 sprays each nostril qday 12/15 completed Not Available Not Available Not Available oxycodone 5 mg tablet 12/06 completed Not Available Not Available Not Available atorvastati n 2018 active Not Available Not Available Not Avai lable Super B Complex 100 active Not Available Not Available Not Available efinaconazo le 10 % topical solution with applicator APPLY TO AFFECTED TOENAIL(S ) BY TOPICAL ROUTE ONCE DAILY 12/15 completed Not Available Not Available Not Available Mens Multivitami n High Potency active Not Available Not Available Not Available Vitals Date Recorded Body mass index (BMI) Body height Oxygen saturation Oxygen saturation in Arterial blood by Pulse oximetry Heart rate Body temperature Body weight Systolic blood pressure Diastolic blood pressure Provider Name and Address Organization Details Last Updated DateTime 2 28.7 kg/m2 180.34 cm 95 % 95 % 78 /min 97.1 [degF] 01934.0 3 g 120 mm[Hg] 80 mm[Hg] Not Available [facility] 3 10:42:55 Date Recorded Body mass index (BMI) Body height Oxygen saturation Oxygen saturation in Arterial blood by Pulse oximetry Heart rate Body temperature Body weight Systolic blood pressure Diastolic blood pressure Provider Name and Address Organization Details Last Updated DateTime 2 28.3 kg/m2 180.34 cm 97 % 97 % 80 /min 97.1 [degF] 31731.2 5 g 128 mm[Hg] 76 mm[Hg] Not Available [facility] 3 10:42:55 Date Recorded Body height Body mass index (BMI) Body weight Body temperature Heart rate Oxygen saturation Oxygen saturation in Arterial blood by Pulse oximetry Systolic blood pressure Diastolic blood pressure Provider Name and Address Organization Details Last Updated DateTime 3 180.34 cm 29.3 kg/m2 05322.4 g 96.3 [degF] 72 /min 98 % 98 % 138 mm[Hg] 76 mm[Hg] Felipa Baird CMA [place] [facility] 3 12:29:19 Date Recorded Body height Body mass index (BMI) Body weight Body temperature Heart rate Oxygen saturation Oxygen saturation in Arterial blood by Pulse oximetry Systolic blood pressure Diastolic blood pressure Provider Name and Address Organization Details Last Updated DateTime 3 180.34 cm 27.9 kg/m2 24407.4 7 g 97.3 [degF] 78 /min 97 % 97 % 104 mm[Hg] 72 mm[Hg] Adina Turpin RN [facility] [employer] [facility] 3 16:52:35 Date Recorded Body height Provider Name an d Address Organization Details Last Updated DateTime 12/15/2022 180.34 cm Trina Chapman MA [facility] [employer] [facility] 12/15/2022 10:15:52 Date Recorded Body mass index (BMI) Body weight Oxygen saturation Oxygen saturation in Arterial blood by Pulse oximetry Body temperature Heart rate Systolic blood pressure Diastolic blood pressure Provider Name and Address Organization Details Last Updated DateTime 3 28.2 kg/m2 30179.6 6 g 97 % 97 % 97.9 [degF] 72 /min 141 mm[Hg] 100 mm[Hg] EDELMIRA Bernard [facility] [employer] [facility] 3 10:21:16 Social History Question Answer Notes LastModified by [employer] Details LastModified Time Tobacco Smoking Status Never Smoker Not Available [facility] 10/26/2022 10:41:30 What Is Your Level Of Caffeine Consumption? Moderate [id number] Information not available 10/26/2022 In The 14 Days Before Symptom Onset, Have You Had Close Contact With A Laboratory-confirm ed COVID-19 While That Case Was Ill? No [id number].[id number] Information not available 10/26/2022 In The 14 Days Before Symptom Onset, Have You Had Close Contact With A Person Who Is Under Investigation For COVID-19 While That Person Was Ill? No [id number] Information not available 10/26/2022 What Type Of Diet Are You Following? REGULAR MIGRATION.[id number] Information not available 10/26/2022 Have You Ever Been Counseled For Unhealthy Alcohol Use? No MIGRATION.[id number] Information not available 10/26/2022 Has Tobacco Cessation Counseling Been Provided? No MIGRATION.[id number] Information not available 10/26/2022 Have You Recently Traveled Abroad? No MIGRATION.020046 6709 Information not available 10/26/2022 Do You Have Any Dietary Restrictions? No MIGRATION.741004 0081 Information not available 10/26/2022 Sex: Unknown Functional Status Question Answer Note LastModified by Organizat ion Details LastModified Time Do you use any illicit or recreational drugs? No [id number].[id number] 035 Information not available 10/26/2022 Do you or have you ever used any other forms of tobacco or nicotine? No MIGRATION.[id number] Information not available 10/26/2022 What is your level of alcohol consumption? Occasional MIGRATION.[id number] 035 Information not available 10/26/2022 What is your exercise level? Occasional [id number].[id number] 035 Information not available 10/26/2022 Mental Status None recorded. Family History Relationship Description Onset Age of this Age Resolved Age Notes LastModified by Organization Details LastModified Time Maternal Uncle Family history of malignant neoplasm [email or web address] Not available 2022 12:29:40 Father Congestive heart failure [email or web address] Not available 2022 12:29:58 Father Diabetes mellitus [email or web address] Not available 2022 10:18:18 Medical History Condition Response BLINDNESS N CYSTITIS N RHEUMATIC FEVER N KIDNEY STONES Y BLADDER PROBLEMS N Enlarged Prostate N MRSA N LUNG DISEASE/DISORDER N HISTORY OF DRUG ABUSE N RADIATION / CHEMOTHERAPY N COPD N BLOOD DISEASES N SHINGLES N BOWEL PROBLEMS N DEPRESSION (INCLUDING POST ) N FAILED BACK SYNDROME N STROKE/TIA N THYROID DISEASE N BENIGN PROSTATIC HYPERPLASIA N OBESITY N GERD/NAUSEA N ANEURYSM N URINARY/BLADDER/KIDNEY PROBLEMS N Increased Urination N CORONARY ARTERY DISEASE (CAD) N Do you have Advance directive? N USE OF BLOOD THINNERS N EMPHYSEMA N GASTROINTESTINAL DISORDER N GASTROINTESTINAL BLEEDING N BLOOD CLOTS N Difficulty Urinating N ASTHMA N Abdominal Pain N CATARACTS N ERECTILE DYSFUNCTION N ARTERIAL INSUFFICIENCY N GI PROBLEMS N Low Testosterone N AIDS/HIV N LIVER DISEASE N MALE HYPOGONADISM N HYPERTENSION N TOURETTE'S N BLOOD TRANSFUSION N ANEMIA/BLOOD DISORDER N TUBERCULOSIS N GLAUCOMA N SLEEP APNEA N BACK INJECTIONS N INFECTIOUS DISEASE N HEART ARRHYTHMIA N PROSTATE N ESRD N INSOMNIA N HIGH CHOLESTEROL / HYPERLIPIDEMIA Y HYPERTHYROIDISM N UTI N PVD N EDEMA N HYPOTHYROIDISM N BACK / NECK PROBLEMS N HAVE YOU BEEN HOSPITALIZED OR SEEN IN [facility] IN THE PAST YEAR ? N DIALYSIS N POLYCYSTIC OVARIES N OSTEOPOROSIS N ARTHRITIS N NO SIGNIFICANT PAST MEDICAL HISTORY N DIABETES, TYPE N VON WILLIBRAND'S DISEASE N PARKINSON N incontinence N HEPATITIS / LIVER DISEASE N POST LAMINECTOMY SYNDROME N GOUT N ALZHEIMER'S DISEASE N SLEEP DISORDER N HERPES N HEADACHES/MIGRAINES N SEIZURES/EPILEPSY N HEART MURMUR Y PACEMAKER N DIZZINESS N HEART DISEASE/HEART PROBLEMS N KIDNEY DISEASE N MULTIPLE SCLEROSIS N NEUROPSYCHOLOGICAL N CANCER: SPECIFY N ANESTHESIA COMPLICATIONS N ATRIAL FIBRILLATION N AUTOIMMUNE DISEASE N Past Encounters Encounter ID Performer Location Encounter Start Date Encounter Closed Date Diagnosis/Indication Diagnosis SNOMED-CT Code Diagnosis ICD10 Code Diagnosis Note [id number] Olga Lyle MD [facility] [place] [address] [place] [address] 07/01/2022 00:00:00 07/01/2022 17:46:48 [id number] Olga Lyle MD [facility] Primary [facility] [place] [address] [place] [address] 08/10/2022 00:00:00 08/10/2022 12:48:36 [id number] ANEL Celeste [facility] [place] [address] [place] [address] 10/28/2022 12:24:01 10/28/2022 13:58:50 Renal mass 198408142 N28.[address] scan (10/10/22)2 cm lesion left kidneyWill refer to nephrology for further evaluation /tx. Pt advised to make sure to take the imaging disc to appt. Injury of spleen 7904221 [address]36[address] New finding on CT chest/abd/ pel (10/10/22)S econdary to fall at work.Pt currently asymptomat ic. Will monitor closely. Discussed s/s that warrant emergency evaluation . Low back pain 574175956 M54.50 Chronic, exacerbate d by fall at work on 10/10/22.Co ntinue to f/u with work comp provider as directed. Onychomyco sis of toenails 467902616 B35.1 onychomyco sis of toenailsNe w problemAdv ised to perform brown mouthwash soaks and apply vapor rub to affected nails daily in the meantime. Pt declines terbinafin e at this time b/c he consumes etoh.RTO 3-6 months for f/u Obstructiv e sleep apnea syndrome 82139848 G47.33 Chronic, stable with cpap. Pt uses nightly and benefits from use. Current device is under recall notice; has been waiting more than 1yr for replacemen t device through [facility].Pt supplied original sleep study from [facility] and replacemen t device ordered from commercial supplier several months ago. Pt reports he just received new device this week. RTO 6 weeks for recheck. [id number] ANEL Celeste [facility] [place] [address] [facility] [address] [place] [address] 12/06/2022 16:44:23 12/06/2022 17:33:06 Renal mass 724045270 N28.[address] scan (10/10/22)2 cm lesion left kidneyChan ged referral to urology as nephrology doesn't tx masses. Has an upcoming appt with Dr. Hall on 12/15/22. Onychomyco sis of toenails 103609104 B35.1 New problemony chomycosis of toenailsAd vised to perform brown mouthwash soaks and apply vapor rub to affected nails daily in the meantime. Pt declines terbinafin e at this time b/c he consumes etoh.RTO 3-6 months for f/u Injury of spleen 0886375 4 [address]36[address] New finding on CT chest/abd/ pel (10/10/22)S econdary to fall at work.Pt currently asymptomat ic. Will monitor closely. Discussed s/s that warrant emergency evaluation . Plan to repeat imaging in March,. Low back pain 625228023 M54.50 Chronic, exacerbate d by fall at work on 10/10/22.Co ntinue to f/u with work comp provider as directed. Obstructiv e sleep apnea syndrome 31854705 G47.33 Chronic, stable with cpap. Pt uses nightly and benefits from use. Current device is under recall notice; has been waiting more than [facility]yr [facility] [place] study from [place] and replacemen t device ordered from commercial supplier several months ago. Advised pt to increase humidity on mask and decrease temperatur e, if not effective may need to reduce the pressure settings. [id number] Tai Gorman MD [facility] [place] [address] [facility] [address] [place] [address] 12/15/2022 10:05:33 12/15/2022 10:39:16 Renal mass 837986931 N28.89 Small renal mass in the left kidney. The mass is solid and is enhancing. It is exophytic lateral upper pole. Right kidney is normal. Given these findings likely card of being a renal cell carcinoma would be 80-90% for men. Treatment options would be , ablation and surgical extirpatio n. Given the location close to the spleen, ablation probably not an option. Recommend partial nephrectom y that can be done laparoscop ically with robotic assist. I discussed the procedure, risks and alternativ es. I showed the patient the films. Will need cmp and cxr and medical clearance before surgery. Health Concerns Section Related Observation LastModified by Organization Detai ls LastModified Time None Recorded Concern Status LastModified by Organization Details LastModified Time None Recorded Advance Directives Directive None Recorded Payers Encounter Date Sequence Insurance Name Policy Number Policy Lawrence Covered Member ID Lawrence Member ID Guarantor Name 10/28/2022 1 [facility] [id number] Jaylon Atkinson [id number] 1 [id number] 01 Jaylon Atkinson 12/06/2022 1 [facility] [id number] Jayoln Atkinson [id number] 1 [id number] 01 Jaylon Atkinson 12/15/2022 1 [facility] [id number] Jaylon Atkinson [id number] Jaylon Atkinson Notes Date Note Type Note Provider Name and Address Organization Details Recorded Time 10/28/2022 text/html 10/28/22: 1. Pt in office for f/u 3 month f/u appt. Pt states he still isn't prepared to stop drinking etoh right now to try the terbinafine for the toenail fungus.2. Pt states he had a work accident on 10/10. States he felt off a train and fx the transverse processes of L1-L4. Pt states he went to ER b/c he did also hit his head. States the imaging showed a mass on his kidneys.3. Pt states he received cpap machine this week and just started using it. [facility]. 08/10/22: 1. Pt in office for 6 week f/u on sleep study and replacement cpap/supplies. Pt states he dropped off copy of sleep study results.2. Pt states he is thinking about stopping drinking etoh. States he has been drinking a bottle of Barefoot Chardonnay every weekend.3. Pt states he hasn't been doing the mouthwash soaks or vapor rub for the toenail fungus. States he is hoping to stop drinking in the spring so he can try the terbinafine. 07/01/22: 1. Pt in office for f/u appt. Pt states that he needs a refill of the amitriptyline. States he takes it to slow down gut transit. Reports it also helps with him falling asleep more easily.2. Reports amitriptyline doesn't help with Tourette's syndrome, but states that he has learned to manage it better as he has gotten older. States he does still have some tics, but they really aren't noticeable.3. Pt c/o toenail fungus. No improvement with otc meds. States it has been present for years .4. Pt states he snores and uses a cpap. States he isn't sure that he really has severe sleep apnea because he only had a [facility]. Reports he uses cpap nightly and benefits from use. Pt states his current cpap is under a recall and he has been waiting over a year for a replacement device. Falguni Galvan, [employer] [address] [facility], [facility] [address], [place], [address], [facility] [employer] 10/28/2022 19:45:47 12/06/2022 text/html 12/06/22: 1. Pt i n office with and granddaughter for 4 week f/u appt. Pt states he tried to sleep with his new cpap, but feels like the air is too hot. States he has even turned the heater and humidifier off.2. Pt states he didn't get the Jublia for his toenails b/c the cost was too high. States that pharmacy told him that there was a generic option. 10/28/22: 1. Pt in office for f/u 3 month f/u appt. Pt states he still isn't prepared to stop drinking etoh right now to try the terbinafine for the toenail fungus.2. Pt states he had a work accident on 10/10. States he felt off a train and fx the transverse processes of L1-L4. Pt states he went to ER b/c he did also hit his head. States the imaging showed a mass on his kidneys.3. Pt states he received cpap machine this week and just started using it. Still waiting to hear from [facility] about the one they ordered. 08/10/22: 1. Pt in office for 6 week f/u on sleep study and replacement cpap/supplies. Pt states he dropped off copy of sleep study results.2. Pt states he is thinking about stopping drinking etoh. States he has been drinking a bottle of Barefoot Chardonnay every weekend.3. Pt states he hasn't been doing the mouthwash soaks or vapor rub for the toenail fungus. States he is hoping to stop drinking in the spring so he can try the terbinafine. 07/01/22: 1. Pt in office for f/u appt. Pt states that he needs a refill of the amitriptyline. States he takes it to slow down gut transit. Reports it also helps with him falling asleep more easily.2. Reports amitriptyline doesn't help with Tourette's syndrome, but states that he has learned to manage it better as he has gotten older. States he does still have some tics, but they really aren't noticeable.3. Pt c/o toenail fungus. No improvement with otc meds. States it has been present for years .4. Pt states he snores and uses a cpap. States he isn't sure that he really has severe sleep apnea because he only [facility]. Reports he uses cpap nightly and benefits from use. Pt states his current cpap is under a recall and he has been waiting over a year for a replacement device. Falguni Galvan, [employer] SUPER[employer]OR [address] [facility], [facility] [address], [place], [address], [facility] [employer] 12/06/2022 20:42:33 12/15/2022 text/html 52 yo male with a incidentally discovered left renal mass. He works for [employer] and fell off a platform. He went to ED and had a CT. This revealed a solid enhancing left renal mass less than 2.5 cm.He has no gross hematuria or flank pain. No previous urinary problems. Tai Gorman MD [address], [place], [address], [employer] 12/21/2022 08:26:05 Data Portability Created on: January 10, 2025 Jaylon Atkinson .[id number] : 1970 Sex: Male Author Organization [employer], Main Office Address [address] [place] [address] Assessment No assessment recorded. Plan of Treatment Reminders Order Date Submit Date Provider Last Modified By Organization Details Last Modified Time Details Appointments None recorded . Lab urinalys is, dipstick 2022 023 bailey [facility] [place], [address], [place], [address], 3 08:26:02 Referral nephrolo gist referral 2022 023 [email or web address] Nithya Kwan MD, [address] [facility] [address], [place], [address], 3 13:29:18 Procedures None recorded . Surgeries None recorded . Imaging None recorded . Medication Orders efinacon azole 10 % topical solution with applicat or 2022 023 [email or web address] [id number], [address], [place], [place], [phone], 3 10:16:41 Jublia 10 % topical solution with applicat or 2022 023 [email or web address] [id number], [address], [place], [place], [phone], 10:16:41 Patient TargetsNo targets recorded. Patient InstructionsNo instructions recorded. 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 Referring Physician: Falguni Galvan, Family Medicine, Encounter Date: 10/28/2022 Results Created Date Observation Date Name Description Value Unit Range Abnormal Flag Note LastModifiedBy Organization Detail LastModifiedTime 12/16/19 23 12/15/2022 urina lysis , dipst ick Leukocytes (reference range: negative yandel/ l) Negati ve Not Available [facility] [place] [address], [place], [address], 12/15/2022 10:21:20 12/16/19 23 12/15/2022 urina lysis , dipst ick Nitrite (reference rage: negative mg/dl) negati ve Not Available [facility] [address], [place], [address], 12/15/2022 10:21:20 12/16/19 23 12/15/2022 urina lysis , dipst ick Urobilinogen (reference range: 0.2-1 mg/dl) 0.2 Not Available [facility] [address], [place], [address], 12/15/2022 10:21:20 12/16/19 23 12/15/2022 urina lysis , dipst ick Protein (reference range: negative mg/dl) Negati ve Not Available [facility] [address], [place], [address], 12/15/2022 10:21:20 12/16/19 23 12/15/2022 urina lysis , dipst ick pH (reference range: 5-7) 7.5 Not Available s_ [facility] [address], [place], [address], 12/15/2022 10:21:20 12/16/19 23 12/15/2022 urina lysis , dipst ick Blood (reference range: negative Constantino/ l) Negati ve Not Available [facility] [address], [place], [address], 12/15/2022 10:21:20 12/16/19 23 12/15/2022 urina lysis , dipst ick Specific [place] (reference range: 1.005-1.030) 1.015 Not Available s _g [facility] [address] [place], [place] [address], [place], [address], 12/15/2022 10:21:20 12/16/19 23 12/15/2022 urina lysis , dipst ick Ketone (reference range: negative mg/dl) Negati ve Not Available [facility] [address], [place], [address], 12/15/2022 10:21:20 12/16/19 23 12/15/2022 urina lysis , dipst ick Bilirubin (reference range: negative mg/dl) Negati ve Not Available [facility] [address], [place], [address], 12/15/2022 10:21:20 12/16/19 23 12/15/2022 urina lysis , dipst ick Glucose (reference range: negative mg/dl) Negati ve Not Available s_g [facility] [address], [place], [address], 12/15/2022 10:21:20 12/16/19 23 12/15/2022 urina lysis , dipst ick Appearance Clear Not Available [facility] [address], [place], [address], 12/15/2022 10:21:20 12/16/19 23 12/15/2022 urina lysis , dipst ick Color Yellow Not Available [facility] [address], [place], [address], 12/15/2022 10:21:20 07/25/20 22 09/15/2014 sleep study , jese martino (PROC ) No observ
--- OUTSIDE RECORDS SUMMARY | 2025-01-10 00:12 | XMS_ITS | Clinical Summary ---
Author Organization [facility] Address [address] [place] [address] Care Team Providers Care Order Takers Supervisor Name Role Phone Sherri Montoya MD Primary Care Provider [phone] Source Comments [facility],non-owned Affiliates and Associated Physician Practices is amultiple site organization consisting of ambulatory clinics and hospital sitesin [place], [place], [place] and [place]. This disclosure is being madepursuant to the Care Everywhere program and may not contain all information available regarding this patient. Last updated 18.[facility] Allergies Active Allergy Reactions Criticality Noted Date Comments Penicillins Rash Medium 10/10/2022 Medications * Be aware that medications may not be up to date on this document. Alwaysverify current medications with the patient. oxyCODONE, immediate release, (Roxicodone) 5 MG tabletIndication s:Closed fracture of transverse process of lumbar vertebra, initial encounter ([facility]) Take 1 (one) tablet by mouth every 6 hours as needed for Pain 20 tablet 10/11/2022 Active methocarbamol (Robaxin) 750 MG tablet Take 1 (one) tablet by mouth every 6 hours as needed for Muscle Spasms 40 tablet 10/11/2022 Active ibuprofen (Motrin) 800 MG tablet Take 1 (one) tablet by mouth every 6 hours as needed for Pain 60 tablet 10/11/2022 Active Social History Tobacco Use Types Packs/Day Years Used Date Smoking Tobacco: Never Assessed Sex and Gender Information Value Date Recorded Sex Assigned at Not on file Legal Sex Male 5:33 PM [employer] Gender Identity Not on file Sexual Orientation Not on file Last Filed Vital Signs Vital Sign Reading Time Taken Comments Blood Pressure 146/93 10/10/2022 2:04 PM [employer] Pulse 91 10/10/2022 2:04 PM [employer] Temperature 36.5 C (97.7 F) 10/10/2022 2:04 PM [employer] Respiratory Rate 17 10/10/2022 2:04 PM [employer] Oxygen Saturation 98% 10/10/2022 2:04 PM [employer] Inhaled Oxygen Concentration - - Weight 90.7 kg (200 lb) 10/10/2022 2:04 PM [employer] Height 180.3 cm (5' 11 ) 10/10/2022 2:04 PM [employer] Body Mass Index 27.89 10/10/2022 2:04 PM [employer] Plan of Treatment Health Maintenance Due Date Last Done Comments COLOGUARD (AGES 45-75) - COLON CA SCREENING 1972 COLON MONITORING 1972 COLONOSCOPY - COLON CA SCREENING 1972 CT COLONOGRAPHY - COLON CA SCREENING 1972 Colorectal Cancer Screening 1972 FIT - COLON CA SCREENING 1972 FLEX SIG - COLON CA SCREENING 1972 LIPID TESTING 1972 HIV SCREENING 11/19/1987 HEPATITIS C SCREENING 11/14/1990 DTAP/TDAP/TD VACCINES (1 - Tdap) 11/19/1991 HEPATITIS B VACCINE (1 of 3 - 19+ 3-dose series) 11/19/1991 PNEUMOCOCCAL VACCINE 50+ (1 of 1 - PCV) 2022 ZOSTER VACCINE (1 of 2) 2022 COVID-19 VACCINE ( season) 2024 07/15/2022, 07/16/2021, 11/13/2020, Additional history exists DEPRESSION SCREENING 08/28/2024 INFLUENZA VACCINE (Season Ended) 2025 HIB VACCINE Aged Out No longer eligi ble based on patient's age to complete this topic HPV VACCINE Aged Out No longer eligi ble based on patient's age to complete this topic MENINGOCOCCAL (Group B) VACCINE SHARED DECISION-MAKING Aged Out No longer eligible based on patient's age to complete this topic MENINGOCOCCAL GROUPS A/C/Y/W VACCINE Aged Out No longer eligible based on patient's age to complete this topic Insurance CIGNA PAYOR GENERIC CIGNA CIGNA PAYOR GENERIC Care Teams Order Takers Supervisor Relationship Specialty Start Date End Date Sherri Montoya MD [address] [address] PCP - General 10/17/22
[2025-01-10 07:43] VITALS: BP 136/92; PULSE 84; RESP 16; TEMP 35.9; O2SAT 99
[2025-01-10] MEDS: LACTATED RINGERS 1,000 ML 150 ML IV CONT (07:50)
--- NOTE | 2025-01-10 08:20 | P.PNAN_ITS ---
Anes - Initial Pre Proc Eval Procedure: Operation Date: 01/10/25 08:30 Proposed Procedures p Esophagogastroduodenoscopy & Colonoscopy - Gurwinder Griffiths MD Date/Time: 01/10/25 08:20 Surgeon: Gurwinder Griffiths MD Pre Op Diagnosis: Dysphagia, unspecified, Screening Patient Data Age: 54 Gender: M Height: 1.8 m Weight: 93.6 kg Last Vital Signs Temp 35.9 C L 01/10/25 07:43 Pulse 84 01/10/25 07:43 Resp 16 01/10/25 07:43 BP 136/92 H 01/10/25 07:43 Pulse Ox 99 01/10/25 07:43 O2 Del Method Room Air 01/10/25 07:43 Allergies Allergy/AdvReac Type Severity Reaction Status Date / Time penicillin V Allergy Unknown Rash Verified 01/10/25 07:41 Home Medications Medication Instructions Recorded Confirmed Type ibuprofen 800 mg tablet 800 mg PO TID PRN pain #30 tabs 05/08/24 01/10/25 Rx amitriptyline 10 mg tablet 10 mg PO QHS 07/11/24 01/10/25 History atorvastatin 40 mg tablet 40 mg PO DAILY 09/05/24 01/10/25 History Patient hx anesthesia problems: none Family hx anesthesia problems: none Results Review: All pre-operative results and documents have been reviewed as part of the pre- operative evaluation. [facility] Past Medical History Medical History Hyperlipidemia Surgical History Surgical History History of kidney surgery Family History Family History Father Family history of heart disease in male family member before age 55 DVT (deep venous thrombosis) Grandparent Cancer Carcinoma of colon Social History Social History Smoking status: Former smoker Tobacco type: cigarettes Second hand tobacco smoke exposure: No Smoking end date: 08/28/08 Alcohol intake: current Drinks per week: 3 Alcohol use details: 1-4/week Substance use: never Substance use type: does not use Do You Feel Safe in your Home?: Yes Lack of Transportation: No Lack of Food: Never True Current Housing: I Have Housing Concerned About Future Housing: No Difficulty Paying Gas/Electric Bills: No Difficulty Paying for Meds: No Currently Unemployed: No Education: Associate Degree Difficulty w/ Childcare or Family Care: No Living arrangements: with family Occupation/Education: occupation Gender identity (if verbalized by the patient): Male Sexual Orientation (if Verbalized by the Patient): Straight or Heterosexual Spiritual care concerns: No Agree to blood products: No Anes - Eval Final PreProcedure Day of Procedure 01/10/25 08:20 Patient weight: overweight Heart: regular rate and rhythm Lungs: clear to auscultation Airway: Mallampati scale class II Neurological: alert and oriented Last oral intake: >/= 8 hours ASA classification: III Emergent: no Anesthetic plan: proceed Anesthesia type and monitoring: general GIVS and standard monitoring Results Review: All pre-operative results and documents have been reviewed as part of the pre- operative evaluation. Informed Consent: The patient's anesthetic plan and its attendant risks and benefits were dis cussed with the patient/family/POA. Questions were solicited and answers provided to the satisfaction of the patient/family/POA.
--- NOTE | 2025-01-10 08:23 | PM.IMHP ---
H&P: HPI History of Present Illness Date/Time: 01/10/25 08:23 Chief Complaint: Dysphagia - screening colonoscopy Narrative: this patient has been experiencing dysphagia to solid food, intermittently for the past 2 years, worsened over the past 6 months. it is not associated with weight loss, nausea, vomiting, difficulty swallowing liquids or heartburn. He never had an EGD. In addition, he is also referred for a screening colonoscopy. Review of Systems Review of Systems: All systems reviewed & are unremarkable except as noted in HPI and below PMFSH Past Medical History Medical History Hyperlipidemia Surgical History Surgical History History of kidney surgery Family History Family History Father Family history of heart disease in male family member before age 55 DVT (deep venous thrombosis) Grandparent Cancer Carcinoma of colon Social History Social History Smoking status: Former smoker Tobacco type: cigarettes Second hand tobacco smoke exposure: No Smoking end date: 08/28/08 Alcohol intake: current Drinks per week: 3 Alcohol use details: 1-4/week Substance use: never Substance use type: does not use Do You Feel Safe in your Home?: Yes Lack of Transportation: No Lack of Food: Never True Current Housing: I Have Housing Concerned About Future Housing: No Difficulty Paying Gas/Electric Bills: No Difficulty Paying for Meds: No Currently Unemployed: No Education: Associate Degree Difficulty w/ Childcare or Family Care: No Living arrangements: with family Occupation/Education: occupation Gender identity (if verbalized by the patient): Male Sexual Orientation (if Verbalized by the Patient): Straight or Heterosexual Spiritual care concerns: No Agree to blood products: No Meds Home Medications and Allergies Home Medications Medication Instructions Recorded Confirmed Type ibuprofen 800 mg tablet 800 mg PO TID PRN pain #30 tabs 05/08/24 01/10/25 Rx amitriptyline 10 mg tablet 10 mg PO QHS 07/11/24 01/10/25 History atorvastatin 40 mg tablet 40 mg PO DAILY 09/05/24 01/10/25 History Allergies Allergy/AdvReac Type Severity Reaction Status Date / Time penicillin V Allergy Unknown Rash Verified 01/10/25 07:41 Vital Signs Vital Signs - 24 hr 01/10/25 07:43 Temperature 96.6 F L Pulse Rate 84 Respiratory Rate 16 Blood Pressure 136/92 H Pulse Oximetry 99 Oxygen Delivery Room Air Exam Const: General: cooperative and healthy appearing Resp: Effort & Inspection: normal respiratory effort and able to speak in complete sentences Auscultation: clear to auscultation bilaterally Cardio: Rate: regular rate Rhythm: regular rhythm GI: Inspection: normal to inspection GI Palp: No No hepatosplenomegaly present Auscultation: normal bowel sounds Rectal Exam: deferred Skin: General skin exam: normal color Psych: Appearance: grossly normal Mental Status: mental status grossly normal Assessment and Plan Assessment and plan (1) Dysphagia: Code(s): R13.10 - Dysphagia, unspecified Status: Acute Assessment and Plan: The patient is deemed a good candidate for the procedures. Consent signed. Will proceed. (2) Screening for colon cancer: Code(s): Z12.11 - Encounter for screening for malignant neoplasm of colon Status: Acute
--- NOTE | 2025-01-10 09:00 | SUR.OPER ---
EGD: ended 847, COLONOSCOPY: started 857
[2025-01-10 09:12] VITALS: BP 122/77; PULSE 84; RESP 18; O2SAT 99
[2025-01-10 09:22] VITALS: BP 131/69; PULSE 82; RESP 18; O2SAT 100
[2025-01-10 09:32] VITALS: BP 129/94; PULSE 74; RESP 18; O2SAT 100
== END 2025-01-10 09:58 | disposition home or self-care (01) ==
PROVIDERS: PCP Family Medicine; Referring Provider Nurse Practitioner; Visit Provider Internal Medicine Gastroenterology
PROC: 0DJ08ZZ Inspection of Upper Intestinal Tract, Via Natural or Artificial Opening Endoscopic (ICD-10-PCS; CPT 45378; principal; 2025-01-10 08:30)
DX: Z12.11 Encounter for screening for malignant neoplasm of colon (principal); D12.3 Benign neoplasm of transverse colon; D13.0 Benign neoplasm of esophagus; K22.2 Esophageal obstruction; K29.20 Alcoholic gastritis without bleeding; E78.5 Hyperlipidemia, unspecified; Z79.1 Long term (current) use of non-steroidal anti-inflammatories (NSAID); Z98.890 Other specified postprocedural states; Z87.891 Personal history of nicotine dependence; Z80.0 Family history of malignant neoplasm of digestive organs; Z82.49 Family history of ischemic heart disease and other diseases of the circulatory system
CPT/HCPCS: 43239; 45385; 88305; J2003; J2704; J7120